=== PATIENT | female | born 1955 | race Caucasian/White ===

== ENCOUNTER 2018-03-17 11:06 | Inpatient (IN) ==
[2018-03-17 12:09] LABS: Basophils % 0.2 %; Hematocrit 32.8 % (35.3-44.9); Hemoglobin 11.9 g/dL (11.5-15.4); Immature Granulocytes % 0.4 % (0-4); Lymphocytes # 0.9 K/mcL (0.6-4.6); Lymphocytes % 7.2 %; Mean Corpuscular HGB Conc 36.3 g/dL (31.6-35.5); Mean Corpuscular Hemoglobin 30.4 pg (28.0-33.3); Mean Corpuscular Volume 83.9 fL (83.0-100.0); Mean Platelet Volume 8.9 fL (9.4-12.4); Monocytes # 1.4 K/mcL (0.0-1.3); Monocytes % 11.3 %; Platelet Count 284 K/mcL (140-400); Red Blood Count 3.91 M/mcL (3.82-4.97); Red Cell Distribution Width 12.3 % (11.5-14.5); Segmented Neutrophils % 80.9 %
[2018-03-17 12:14] LABS: Prothrombin Time 10.8 Seconds (9.4-12.1)
[2018-03-17 12:17] LABS: Activated Partial Thrombo Time 28.2 Seconds (26.0-36.0)
[2018-03-17 12:27] LABS: Troponin I < 0.03 ng/mL (< 0.04)
--- NOTE | 2018-03-17 12:31 | Emergency Department Note ---
Disposition Clinical Impression: Hyponatremia Chest pain Qualifiers: Chest pain type: unspecified Qualified Code(s): R07.9 - Chest pain, unspecified Pneumonia Qualifiers: Pneumonia type: due to unspecified organism Laterality: left Lung location: unspecified part of lung Qualified Code(s): J18.9 - Pneumonia, unspecified organism Disposition: Admitted As Inpatient Condition: Good Referrals: Livier Fox MD [Primary Care Provider] - Forms: ED Satisfaction Letter Time of Disposition: 12:50 Chest Pain HPI - General Chief Complaint: ED Chest Pain Stated Complaint: CP Time Seen by Provider: 03/17/18 11:25 Source: patient, EMS Vital Signs Reviewed: Yes Nursing Notes Reviewed: Yes - History of Present Illness HPI Narrative: This is a 62 year-old female with history of ovarian ca (diagnosed "many years ago," s/p hysterectomy) and epilepsy, who presents with sharp substernal chest pain that began suddenly about an hour ago at rest and has improved since onset. The pain was non-radiating. She denies any associated fever, cough, dyspnea, leg pain, or swelling. She reports a mild headache and chronic diarrhea. 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 Duration: other (improved since onset) Onset: during rest Pain Location: substernal Severity: moderate Severity scale (1-10): 5 Quality: sharp Pain Radiation: none Improves with: nothing Worsens with: nothing Associated symptoms: Denies: nausea, vomiting, dyspnea, syncope, palpitations, fever, cough, leg swelling - Related Data Home Medications Medication Instructions Recorded Confirmed LevETIRAcetam [Keppra Xr] 1,500 mg PO QAM 03/17/18 03/17/18 LevETIRAcetam [Keppra Xr] 2,000 mg PO HS 03/17/18 03/17/18 Allergies Allergy/AdvReac Type Severity Reaction Status Date / Time No Known Allergies Allergy Verified 03/17/18 13:31 All systems ED: reviewed and negative except as stated. Constitutional: Denies: fever Cardiovascular: Reports: as per HPI, chest pain. Denies: palpitations, edema, syncope Respiratory: Denies: cough, dyspnea, wheezes Gastrointestinal: Reports: diarrhea. Denies: abdominal pain, nausea, constipation Neurological: Reports: as per HPI, headache. Denies: weakness, numbness Chest Pain PMH - Past Medical History Medical history: Reports: cancer, renal disease, seizures Psychiatric history: Reports: no psych history - Social History Smoking Status: Never smoker Alcohol use: Reports: none Drug use: Reports: none Physical Exam - General Limitations: no limitations General appearance: alert - Head Head exam: atraumatic, normocephalic - Eye Eye exam: Present: normal appearance, PERRL, EOMI - ENT ENT exam: normal exam, normal oropharynx - Neck Neck exam: Present: normal inspection - Respiratory Respiratory exam: Present: normal lung sounds bilaterally. Absent: wheezes - Cardiovascular Cardiovascular exam: Present: regular rate, normal rhythm, normal heart sounds. Absent: systolic murmur, diastolic murmur, rubs, gallop - Abdominal Exam Abdominal exam: Present: soft, Non-Tender. Absent: tenderness, distention, guarding, rebound, rigidity - Extremities Exam Extremities exam: Present: normal inspection. Absent: calf tenderness - Back Exam Back exam: Present: normal inspection - Neurological Exam Neurological exam: Present: alert, oriented X3, CN II-XII intact. Absent: motor sensory deficit - Psychiatric Psychiatric exam: Present: normal affect, normal mood - Skin Skin exam: Present: warm, dry, intact Course - Reevaluation(s) Reevaluation #1: Patient resting comfortably. Discussed test results and plans for admission. Time: 13:40 - Consultations Consultation #1: Discussed case with Dr. Blake, and patient accepted for admission Time: 14:30 Vital Signs Temperature 99.3 F 03/17/18 11:09 Pulse Rate 94 03/17/18 11:09 Respiratory Rate 22 03/17/18 11:09 Blood Pressure 145/60 03/17/18 11:09 O2 Sat by Pulse Oximetry 100 03/17/18 11:09 Temperature 99.3 F 03/17/18 11:09 Pulse Rate 80 03/17/18 13:30 Respiratory Rate 18 03/17/18 13:30 Blood Pressure 139/66 03/17/18 13:30 O2 Sat by Pulse Oximetry 98 03/17/18 13:30 Oxygen Delivery Oxygen Delivery Room Air Chest Pain - Lab Data Lab results reviewed: Yes I reviewed the patient's lab results. Result diagrams: 03/17/18 12:00 03/17/18 12:00 Lab Results 03/17/18 03/17/18 03/17/18 Range/Units 12:00 12:00 12:00 WBC 12.4 H (4.3-11.1) K/mcL RBC 3.91 (3.82-4.97) M/mcL Hgb 11.9 (11.5-15.4) g/dL Hct 32.8 L (35.3-44.9) % MCV 83.9 (83.0-100.0) fL MCH 30.4 (28.0-33.3) pg MCHC 36.3 H (31.6-35.5) g/dL RDW 12.3 (11.5-14.5) % Plt Count 284 (140-400) K/mcL MPV 8.9 L (9.4-12.4) fL Immature Gran % 0.4 (0-4) % Seg Neutrophils % 80.9 % Lymphocytes % 7.2 % Monocytes % 11.3 % Eosinophils % 0.0 % Basophils % 0.2 % Neutrophils # 10.0 H (1.6-8.9) K/mcL Lymphocytes # 0.9 (0.6-4.6) K/mcL Monocytes # 1.4 H (0.0-1.3) K/mcL Eosinophils # 0.0 (0.0-0.6) K/mcL Basophils # 0.0 (0.0-0.2) K/mcL PT 10.8 (9.4-12.1) Seconds INR 1.0 APTT 28.2 (26.0-36.0) Seconds D-Dimer 442 (0-500) ng/mLFEU Sodium 113 L* (136-145) mEq/L Potassium 4.4 (3.5-5.1) mEq/L Chloride 84 L (98-107) mEq/L Carbon Dioxide 18 L (23-29) mEq/L BUN 2 L (8-23) mg/dL Creatinine 0.74 (0.60-1.20) mg/dL Est GFR ( Amer) > 60 (> 60) Est GFR (Non-Af Amer) > 60 (> 60) BUN/Creatinine Ratio 3 L (6-26) Glucose 102 (70-105) mg/dL Calculated Osmolality 232 L (280-300) Calcium 8.9 (8.6-10.3) mg/dL Troponin I < 0.03 (< 0.04) ng/mL - Radiology Data Radiology results reviewed: Yes I reviewed the patient's radiology results. - EKG Data EKG attestation: Yes I reviewed and interpreted this EKG. EKG shows normal: sinus rhythm Rate: normal Rhythm: NSR [place]/QRS: normal Interpretation: other (poor quality tracing)
[2018-03-17 12:34] LABS: BUN/Creatinine Ratio 3 (6-26); Blood Urea Nitrogen 2 mg/dL (8-23); Calcium 8.9 mg/dL (8.6-10.3); Carbon Dioxide 18 mEq/L (23-29); Chloride 84 mEq/L (98-107); Glucose 102 mg/dL (70-105); Osmolality,Calculated 232 (280-300); Potassium 4.4 mEq/L (3.5-5.1); Sodium 113 mEq/L (136-145); eGFR For African Americans > 60 (> 60); eGFR For Non-African Americans > 60 (> 60)
[2018-03-17] MEDS ORDERED: 0.9 % Sodium Chloride 1,000 ML ONE (13:27)
[2018-03-17] MEDS ORDERED: 0.9 % Sodium Chloride 1,000 ML IVC ONE (13:28)
[2018-03-17] MEDS ORDERED: Azithromycin 500 MG in D5% in Water 250 ML IVPB ONE (14:44)
[2018-03-17] MEDS ORDERED: cefTRIAXone 1,000 MG in Water for inj. (sterile) 20 ML 10 ML IVP ONE (14:44)
[2018-03-17] MEDS ORDERED: Naloxone 0.4 MG/ML INJ IVP PRN ×2 (16:07→16:11)
[2018-03-17] MEDS ORDERED: 0.9 % Sodium Chloride 1,000 ML IVC SCH (16:15)
[2018-03-17] MEDS ORDERED: Levofloxacin 500 MG/100 ML 500 MG/100 ML BAG IVPB SCH (16:18)
--- NOTE | 2018-03-17 16:21 | Internal Med History&Physical ---
Date of Encounter: 03/17/18 Time of Encounter: 16:28 Internal Medicine - H&P: HPI Chief complaint: Chest pain and dizziness (only admits to on review) History of present illness: Ms. Gill is a 62 year old female with a hx of seizure m non-smoker, hx of hysterectomy 15-20 years ago for ovarian Ca who presents with Chest pain evaluation. Found possible PNA and symptomatic hyponatremia suspicious for SIADH. Reported chest pain starting this morning when she was at rest taking seizure medication, sternal , rate 5/10, pressure like, no radiation. Pain symptoms resolved a few hours after admission in the ED. However, on labs, was found to be in severe hyponatremia. Reportedly seen PCP last month with blood work that was reported to be normal. On review, she reports of balance issues in the last few days to suggest symptomatic hyponatremia EKG personally reviewed with rate 88, ST-T changes that is non-specific XR/XR chest 1V portable IMPRESSION: Possible left parahilar pneumonia Past Med Surg Social Fam HX - Past Medical History Medical history: cancer, renal disease, seizures Psychiatric history: no psych history - Past Surgical History Surgical History: other (hysterectomy) - Social History Smoking Status: Never smoker Smokeless Tobacco Status: No Alcohol use: none Drug use: none Internal Medicine - H&P: Meds LevETIRAcetam [Keppra Xr] 1,500 mg PO QAM 03/17/18 [History] LevETIRAcetam [Keppra Xr] 2,000 mg PO HS 03/17/18 [History] 3 Allergy/AdvReac Type Severity Reaction Status Date / Time No Known Allergies Allergy Verified 03/17/18 13:31 All Systems PM: A 10-system review of systems was performed and is negative for pertinent findings except as documented above in the HPI. Review of systems: ROS 14 point review of systems reviewed as best as possible given presentation. Pertinent positive or negative as per HPI or otherwise reviewed as negative - Constitutional Vitals: Temp Pulse Resp BP Pulse Ox 99.3 F 86 21 148/101 97 03/17/18 11:09 03/17/18 15:22 03/17/18 15:22 03/17/18 15:22 03/17/18 15:22 Exam: General - AAO x 3 Psych - Appropriate affect/speech. No agitation Eyes - WILFREDO. Eye lids intact. No scleral icterus Neuro - No gross peripheral or central neuro deficits on inspection Heart - Sinus. RRR. S1 and S2 present. No added HS/murmurs appreciated. No elevated JVD appreciated. Lung - Adequate air entry b/l, No crackles/wheezes appreciated GI - Soft, non-tender. No hepatosplenomegaly/ascites. BS+ - No CVA/suprapubic tenderness or palpable bladder distension Skin - Intact. No rash/petechiae/ecchymosis. Warm extremities MSK - Joints with normal ROM. No joint swellings Internal Med - H&P Results - Labs CBC & Chem 7: 03/17/18 12:00 03/17/18 12:00 - Assessment and plan (1) Hyponatremia Current Visit: Yes Status: Acute Assessment and plan: symptomatic with dizziness. Possible SIADH from PNA - lung process discussed with renal - Dr Shetty - q4 Na check, fluid restrict, trial low vol. 0.9 NS 75cc/hr and monitor closely (would hold if Na worsens), send urine lytes, check TFT, cortisol screen (2) Pneumonia Current Visit: Yes Status: Acute Assessment and plan: treat as CAP send serologies IV levaquin Qualifiers: Pneumonia type: due to unspecified organism Laterality: left Lung location: unspecified part of lung Qualified Code(s): J18.9 - Pneumonia, unspecified organism (3) Chest pain Current Visit: Yes Status: Acute Assessment and plan: might be 2/2 to PNA - will trend trop, treat with antibiotics Qualifiers: Chest pain type: precordial pain Qualified Code(s): R07.2 - Precordial pain (4) Seizure Current Visit: Yes Status: Acute Assessment and plan: hx of seizure follows with neurologist in [place] (Does not recall name). On high dose keppra - Time Spent With Patient Total time spent is greater than 50% in coordination of care (as documented) at patient's floor/unit and/or counseling patient:
[2018-03-17 17:21] LABS: Sodium 117 mEq/L (136-145); Troponin I < 0.03 ng/mL (< 0.04)
[2018-03-17] MEDS ORDERED: levETIRAcetam 250 MG TABLET PO SCH (21:00)
[2018-03-18 01:35] LABS: BUN/Creatinine Ratio 7 (6-26); Blood Urea Nitrogen 6 mg/dL (8-23); Calcium 8.9 mg/dL (8.6-10.3); Carbon Dioxide 19 mEq/L (23-29); Chloride 95 mEq/L (98-107); Glucose 105 mg/dL (70-105); Magnesium 1.7 mg/dL (1.6-2.6); Osmolality,Calculated 252 (280-300); Potassium 4.1 mEq/L (3.5-5.1); Sodium 122 mEq/L (136-145); eGFR For African Americans > 60 (> 60); eGFR For Non-African Americans > 60 (> 60)
[2018-03-18 01:48] LABS: Basophils % 0.3 %; Eosinophils % 0.1 %; Hematocrit 32.1 % (35.3-44.9); Hemoglobin 11.5 g/dL (11.5-15.4); Immature Granulocytes % 0.4 % (0-4); Lymphocytes # 0.9 K/mcL (0.6-4.6); Lymphocytes % 12.9 %; Mean Corpuscular HGB Conc 35.8 g/dL (31.6-35.5); Mean Corpuscular Hemoglobin 30.1 pg (28.0-33.3); Mean Platelet Volume 9.2 fL (9.4-12.4); Monocytes # 1.1 K/mcL (0.0-1.3); Monocytes % 15.5 %; Neutrophils # 5.1 K/mcL (1.6-8.9); Platelet Count 266 K/mcL (140-400); Red Blood Count 3.82 M/mcL (3.82-4.97); Red Cell Distribution Width 12.3 % (11.5-14.5); Segmented Neutrophils % 70.8 %; Thyroid Stimulating Hormone 1.543 mcIU/mL (0.340-5.600)
[2018-03-18 02:20] LABS: Adenovirus Not Detected (Not Detect); Bordetella Pertussis Not Detected (Not Detect); Chlamydophila pneumoniae Not Detected (Not Detect); Coronavirus 229E Not Detected (Not Detect); Coronavirus HKU1 Not Detected (Not Detect); Coronavirus NL63 Not Detected (Not Detect); Coronavirus OC43 Not Detected (Not Detect); Human Metapneumovirus Not Detected (Not Detect); Human Rhinovirus/Enterovirus Not Detected (Not Detect); Influenza A Subtype 2009 H1 Not Detected (Not Detect); Influenza A Untypeable Not Detected (Not Detect); Influenza B Not Detected (Not Detect); Mycoplasma pneumoniae Not Detected (Not Detect); Parainfluenza Virus 1 Not Detected (Not Detect); Parainfluenza Virus 2 Not Detected (Not Detect); Parainfluenza Virus 3 Not Detected (Not Detect); Parainfluenza Virus 4 Not Detected (Not Detect); Respiratory Syncytial Virus Not Detected (Not Detect)
[2018-03-18] MEDS: D5% in 0.2% NACL 500 ML IVC SCH (08:30)
--- NOTE | 2018-03-18 08:52 | Nephrology Consult Note ---
Date of Encounter: 03/18/18 Time of Encounter: 08:50 Assessment and Plan (1) Hyponatremia Current Visit: Yes Status: Acute The patient presented with a sodium of 113. It is unclear if this is acute or chronic. I believe that the etiology is related to excessive fluid intake. This is based on the history of drinking approximate 6 L of fluid per day as well as the fact that the urine osmolality was appropriately low at 73. Recommendations for treatment include fluid restriction at a level of about 1500 mL per day. We will continue to monitor her sodium while she is here in the hospital. It has been associated with hyponatremia less than 1% of the time. Since she has been on this medication for 10 years and the fact that her sodium was normal back in 2014 I do not believe that this is a likely factor. History of Present Illness - History of Present Illness This is a 62-year-old female the present regimen with complaints of atypical chest pain. She was noted to have a sodium level of 13. She subsequently was admitted to the hospital for further evaluation and management. Patient reports that she has been on a low sodium diet because she has had issues with high sodium in the past. She also reports she drinks approximately 6 L of either iced tea coffee or water or combination thereof per day. She denies any lower extremity swelling. She denies any recent nausea vomiting or diarrhea. She has been on Keppra for over 10 years at the same dose for a history of a seizure disorder. Laboratory studies show that this morning her sodium is up to 132. She initially was started on IV normal saline this is subsequently been discontinued. TSH is normal. BUN/creatinine and potassium are all normal. Urine osmolality was appropriately low at 73. Laboratory studies from October 2015 showed that she had a sodium level of 139. There is no other old lab available. Past Med Surg Social Fam HX - Past Medical History Medical history: cancer, renal disease, seizures Psychiatric history: no psych history - Past Surgical History Surgical History: other (hysterectomy) - Social History Smoking Status: Never smoker Smokeless Tobacco Status: No Alcohol use: none Drug use: none Medications and Allergies LevETIRAcetam [Keppra Xr] 1,500 mg PO QAM 03/17/18 [History] LevETIRAcetam [Keppra Xr] 2,000 mg PO HS 03/17/18 [History] 3 Allergy/AdvReac Type Severity Reaction Status Date / Time No Known Allergies Allergy Verified 03/17/18 13:31 Review of Systems Constitutional: as per HPI Eyes: bilateral: blurred vision (patient denies), diplopia (patient denies) Nose, mouth and throat: no dizziness, no headache(s) Cardiovascular: chest pain, no palpitations Respiratory: no cough, no dyspnea Gastrointestinal: no abdominal pain, no change in bowel habits Musculoskeletal: no muscle weakness, no numbness Integumentary: no hirsutism, no striae Neurological: as per HPI Psychiatric: no depression, no difficulty concentrating Endocrine: as per HPI Hematologic/Lymphatic: no easy bruising, no lymphadenopathy Exam - Vital Signs Vital signs: Initial Vital Signs Temp Pulse Resp BP Pulse Ox 99.3 F 94 22 145/60 100 03/17/18 11:09 03/17/18 11:09 03/17/18 11:09 03/17/18 11:09 03/17/18 11:09 Vital Signs - Last 8 Hours Temp Pulse Resp BP Pulse Ox 03/18/18 06:56 99.8 F H 71 20 109/72 97 03/18/18 02:22 98.6 F 72 18 131/69 98 Intake and Output 03/17/18 03/18/18 03/18/18 23:59 07:59 15:59 Output Total 1800 / 1800 1300 / 1300 Balance -1800 / -1800 -1300 / -1300 Output: Urine 1800 / 1800 1300 / 1300 Other: # Voids 1 Weight 50.2 kg Patient Weight 03/18/18 23:59 Weight 50.2 kg - General Appearance Exam: The patient is alert and oriented. She is in no acute distress. Lungs clear to auscultation. Heart regular rate and rhythm. Abdomen shows normal bowel sounds bruise masses or megaly or tenderness. Extremities show no peripheral edema. Results - Lab Results 03/18/18 00:59 03/18/18 07:44 Most recent lab results Calcium 8.9 mg/dL (8.6-10.3) 03/18/18 00:59 Magnesium 1.7 mg/dL (1.6-2.6) 03/18/18 00:59 Urine Sodium 19.6 mEq/L 03/17/18 22:03 Consult Discharge Plan - Plan Referrals: Livier Fox MD [Primary Care Provider] -
[2018-03-18] MEDS ORDERED: levETIRAcetam 250 MG TABLET PO SCH (09:00)
[2018-03-18] MEDS: Levofloxacin 750 MG/150 ML 750 MG/150 ML BAG IVPB SCH (09:09)
[2018-03-18] MEDS: KEPPRA 500 MG PO SCH ×2 (10:04→21:07)
--- NOTE | 2018-03-18 12:28 | Electrocardiograph Report ---
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
--- NOTE | 2018-03-18 17:40 | Internal Med Progress Note ---
Date of Encounter: 03/18/18 Time of Encounter: 17:36 - Assessment and plan (1) Hyponatremia Current Visit: Yes Status: Acute Assessment and plan: Severe hyponatremia Due to excessive water intake cont fluid restriction her Na got corrected rapidly so started her on D5 1/ NS @ 75ml /hr Our goal to keep Na @ 126-128 today Goal of correction 0.5 meq/hr, not more than 8-10 meq/day Nephro consulted cont Q4hr BMP (2) Chest pain Current Visit: Yes Status: Acute Assessment and plan: might be 2/2 to PNA Atypical CP so far negative trop No acute EKG changes no further work up needed Cont empirical abx Qualifiers: Chest pain type: precordial pain Qualified Code(s): R07.2 - Precordial pain (3) Pneumonia Current Visit: Yes Status: Acute Assessment and plan: Mostly bacterial Her resp viral panel - negative cont empirical abx Levaquin Qualifiers: Pneumonia type: due to unspecified organism Laterality: left Lung location: unspecified part of lung Qualified Code(s): J18.9 - Pneumonia, unspecified organism (4) Seizure Current Visit: Yes Status: Acute Assessment and plan: hx of seizure follows with neurologist in [place] (Does not recall name) Resumed home dose of Keppra Also since pt has more seizure activity lately will do EEG in AM - Time Spent With Patient Total time spent is greater than 50% in coordination of care (as documented) at patient's floor/unit and/or counseling patient: - Subjective Interval history: Ms. Gill is a 62 year old female with a hx of seizure , non-smoker, hx of hysterectomy 15-20 years ago for ovarian Ca who presents with Chest pain evaluation. Her CXR showed left parahilar pneumonia. Also her Na was @ 113. She was admitted in the hospital and started on gentle hydration. However her Na got corrected rapidly. This morning her Na @ 135. She did mention drinking plenty of plain water at home. She denied any CP now..She did c/o frequent seizures lately. - Constitutional Vitals: Temp Pulse Resp BP Pulse Ox 98.6 F 91 98 101/65 100 03/18/18 15:59 03/18/18 15:59 03/18/18 15:59 03/18/18 15:59 03/18/18 10:58 General appearance: Present: A&O X 3, no acute distress, answers questions appropriately - Head Head exam: Present: atraumatic, normal inspection - Neck Neck exam general surgery: Present: supple - Respiratory Respiratory exam: Present: decreased breath sounds. Absent: respiratory distress, rhonchi, wheezes - Cardiovascular Cardiovascular exam: Present: RRR, +S1, +S2. Absent: tachycardia - GI/Abdominal GI/Abdominal exam: Present: normal bowel sounds, soft. Absent: rebound, rigid, tenderness - Extremities Exam Extremities exam: Absent: calf tenderness, pedal edema, tenderness - Back Exam Back exam: Absent: CVA tenderness (L), CVA tenderness (R) - Neurological Exam Neurological exam: Present: alert, oriented X3 - Psychiatric Psychiatric exam: Present: normal affect, normal mood Internal Medicine: Result - Labs CBC & Chem 7: 03/18/18 00:59 03/18/18 16:04 Labs: Short CBC 03/18/18 Range/Units 00:59 WBC 7.3 (4.3-11.1) K/mcL Hgb 11.5 (11.5-15.4) g/dL Hct 32.1 L (35.3-44.9) % Plt Count 266 (140-400) K/mcL Neutrophils # 5.1 (1.6-8.9) K/mcL BMP 03/17/18 03/18/18 03/18/18 20:37 00:59 00:59 Sodium 120 L* 122 L 122 L Potassium 4.1 Chloride 95 L Carbon Dioxide 19 L BUN 6 L Creatinine 0.84 Glucose 105 Calcium 8.9 03/18/18 03/18/18 03/18/18 05:04 07:44 12:16 Sodium 132 L D 135 L 129 L Potassium Chloride Carbon Dioxide BUN Creatinine Glucose Calcium 03/18/18 16:04 Sodium 131 L Potassium Chloride Carbon Dioxide BUN Creatinine Glucose Calcium Cardiac Enzymes 03/17/18 03/18/18 Range/Units 22:11 05:04 Troponin I < 0.03 < 0.03 (< 0.04) ng/mL - ABG Interpretation ABG results: PT/INR, D-dimer PT 10.8 Seconds (9.4-12.1) 03/17/18 12:00 D-Dimer 442 ng/mLFEU (0-500) 03/17/18 12:00 Consult Discharge Plan - Plan Referrals: Livier Fox MD [Primary Care Provider] -
[2018-03-18] MEDS ORDERED: D5% in 0.2% NACL 500 ML IVC SCH (18:30)
[2018-03-19 05:15] LABS: Hematocrit 34.5 % (35.3-44.9); Hemoglobin 11.6 g/dL (11.5-15.4); Mean Corpuscular HGB Conc 33.6 g/dL (31.6-35.5); Mean Corpuscular Hemoglobin 29.7 pg (28.0-33.3); Mean Corpuscular Volume 88.5 fL (83.0-100.0); Mean Platelet Volume 8.9 fL (9.4-12.4); Platelet Count 260 K/mcL (140-400); Red Cell Distribution Width 12.8 % (11.5-14.5)
[2018-03-19 05:38] LABS: Alanine Aminotransferase 7 Units/L (7-52); Albumin 3.2 g/dL (3.5-5.7); Alkaline Phosphatase 88 Units/L (34-104); Aspartate Amino Transferase 13 Units/L (13-39); BUN/Creatinine Ratio 10 (6-26); Bilirubin,Total 0.4 mg/dL (0.3-1.0); Blood Urea Nitrogen 8 mg/dL (8-23); Calcium 8.9 mg/dL (8.6-10.3); Carbon Dioxide 22 mEq/L (23-29); Chloride 104 mEq/L (98-107); Globulin 3.2 g/dL (2.4-3.5); Glucose 93 mg/dL (70-105); Osmolality,Calculated 272 (280-300); Potassium 3.6 mEq/L (3.5-5.1); Sodium 132 mEq/L (136-145); Total Protein 6.4 g/dL (6.4-8.9); eGFR For African Americans > 60 (> 60); eGFR For Non-African Americans > 60 (> 60)
[2018-03-19 05:57] LABS: Eosinophils # 0.1 K/mcL (0.0-0.6); Lymphocytes # 1.5 K/mcL (0.6-4.6); Monocytes # 0.4 K/mcL (0.0-1.3); Neutrophils # 2.4 K/mcL (1.6-8.9); Platelet Estimate Normal (Normal)
[2018-03-19] MEDS: KEPPRA 500 MG PO SCH ×3 (06:37→20:29)
[2018-03-19] MEDS: Levofloxacin 750 MG/150 ML 750 MG/150 ML BAG IVPB SCH (08:23)
--- NOTE | 2018-03-19 12:00 | Nephrology Progress Note ---
Date of Encounter: 03/19/18 Time of Encounter: 11:45 - Assessment and Plan (1) Hyponatremia Current Visit: Yes Status: Acute Sodium improving, 132. Most likely related to excessive fluid intake. Continue fluid restriction. Will continue to monitor. Subjective Interval history: Currently having EEG set up. No new complaints. Objective - Vital Signs Vital signs: Vital Signs Temp Pulse Resp BP Pulse Ox 03/19/18 11:18 98.1 F 75 16 119/74 99 03/19/18 07:30 98.1 F 72 16 132/83 100 03/19/18 03:49 98.0 F 76 16 132/70 100 03/19/18 00:28 98.2 F 82 16 138/76 100 03/18/18 21:30 97.9 F 81 17 146/80 100 03/18/18 15:59 98.6 F 91 98 101/65 Intake and Output 03/18/18 03/19/18 03/19/18 23:59 07:59 15:59 Intake Total 360 / 360 Output Total 850 / 850 Balance -850 / -850 360 / 360 Intake: Oral 360 / 360 Output: Urine 850 / 850 Other: Meal Breakfast Percent of Meal Consumed 50% # Voids 1 Weight 50.3 kg 50.3 kg Patient Weight 03/19/18 23:59 Weight 50.3 kg - General Appearance General appearance: Present: well-developed, well-nourished, appears started age EENT: Present: mucous membranes moist Neck: Present: no JVD Respiratory: Present: clear Cardiology: Present: no edema, regular rate, regular rhythm Gastrointestinal: Present: normoactive bowel sounds, no tenderness Integumentary: Present: warm and dry Neurologic: Present: alert and oriented x3 Psychiatric: Present: mood/affect appropriate, cooperative - Lab 03/19/18 05:01 03/19/18 05:01 Most recent lab results Calcium 8.9 mg/dL (8.6-10.3) 03/19/18 05:01 Magnesium 2.0 mg/dL (1.6-2.6) 03/19/18 05:01 Urine Sodium 19.6 mEq/L 03/17/18 22:03 Consult Discharge Plan - Plan Referrals: Livier Fox MD [Primary Care Provider] -
--- NOTE | 2018-03-19 14:42 | EEG/EMG/Oth Biometrics Report ---
EEG Procedure Report Date of procedure: 03/19/18 EEG Procedure: Routine EEG Procedure Note: This is a report of a 21 channel bipolar and referential montage EEG. A posterior dominant rhythm consisted of mixed beta and alpha frequencies. This rhythm attenuates symmetrically with eye opening. Hyperventilation is performed and does not significantly alter the recording. Periods of drowsiness and stage II sleep are identified as reference by dropout of the posterior dominant rhythm and emergence of vertex activity, K complexes, and sleep spindles. Photostimulation is performed and does not produce a driving response. The EKG rhythm strip reveals normal sinus rhythm at 72 beats per minute. Impressions: This EEG recording is within normal limits. There is no evidence of epileptiform activity identified during the study. Comment: A normal EEG does not preclude a diagnosis of seizure or epilepsy. If the clinical suspicion for seizure activity is high, serial EEGs or perhaps a prolonged recording may increase the yield. Please correlate clinically.
[2018-03-19] MEDS: D5% in 0.2% NACL 500 ML IVC SCH (15:19)
--- NOTE | 2018-03-19 15:41 | Internal Med Progress Note ---
Date of Encounter: 03/19/18 Time of Encounter: 15:39 - Assessment and plan (1) Hyponatremia Current Visit: Yes Status: Acute Assessment and plan: Severe hyponatremia Due to excessive water intake cont fluid restriction her Na got corrected rapidly y/d so started her on D5 1/4 NS @ 75ml /hr ..this morning Na @ 132 so d/c IV fluids Goal of correction 0.5 meq/hr, not more than 8-10 meq/day Nephro is on board.. appreciate their help check labs in AM possible d/c home in AM (2) Chest pain Current Visit: Yes Status: Acute Assessment and plan: might be 2/2 to PNA Atypical CP so far negative trop No acute EKG changes no further work up needed Cont empirical abx Qualifiers: Chest pain type: precordial pain Qualified Code(s): R07.2 - Precordial pain (3) Pneumonia Current Visit: Yes Status: Acute Assessment and plan: Mostly bacterial Her resp viral panel - negative cont empirical abx Levaquin Qualifiers: Pneumonia type: due to unspecified organism Laterality: left Lung location: unspecified part of lung Qualified Code(s): J18.9 - Pneumonia, unspecified organism (4) Seizure Current Visit: Yes Status: Acute Assessment and plan: hx of seizure follows with neurologist in [place] (Does not recall name) Resumed home dose of Keppra Since pt mentioned about frequent seizure activity lately did an EEG which showed normal activity - Time Spent With Patient Total time spent is greater than 50% in coordination of care (as documented) at patient's floor/unit and/or counseling patient: - Subjective Interval history: Ms. Gill is a 62 year old female with a hx of seizure , non-smoker, hx of hysterectomy 15-20 years ago for ovarian Ca who presents with Chest pain evaluation. Her CXR showed left parahilar pneumonia. Also her Na was @ 113. She was admitted in the hospital and started on gentle hydration. She did mention drinking plenty of plain water at home.She did c/o frequent seizures lately. She denied any CP now. She is alert, awake and O x 3. Denied any SOB . No events over night. No seizure activity - Constitutional Vitals: Temp Pulse Resp BP Pulse Ox 98.1 F 75 16 119/74 99 03/19/18 11:18 03/19/18 11:18 03/19/18 11:18 03/19/18 11:18 03/19/18 11:18 General appearance: Present: A&O X 3, no acute distress, answers questions appropriately - Head Head exam: Present: atraumatic, normal inspection - Neck Neck exam general surgery: Present: supple - Respiratory Respiratory exam: Present: decreased breath sounds. Absent: rales, respiratory distress, rhonchi, wheezes - Cardiovascular Cardiovascular exam: Present: RRR, +S1, +S2. Absent: tachycardia - GI/Abdominal GI/Abdominal exam: Present: normal bowel sounds, soft. Absent: rebound, rigid, tenderness - Extremities Exam Extremities exam: Absent: calf tenderness, pedal edema, tenderness - Back Exam Back exam: Absent: CVA tenderness (L), CVA tenderness (R) - Neurological Exam Neurological exam: Present: alert, oriented X3 - Psychiatric Psychiatric exam: Present: normal affect, normal mood - Skin Skin exam: Absent: rash Internal Medicine: Result - Labs CBC & Chem 7: 03/19/18 05:01 03/19/18 05:01 Labs: Short CBC 03/19/18 Range/Units 05:01 WBC 4.4 (4.3-11.1) K/mcL Hgb 11.6 (11.5-15.4) g/dL Hct 34.5 L (35.3-44.9) % Plt Count 260 (140-400) K/mcL Neutrophils # 2.4 (1.6-8.9) K/mcL BMP 03/18/18 03/18/18 03/19/18 16:04 20:13 00:44 Sodium 131 L 131 L 130 L Potassium Chloride Carbon Dioxide BUN Creatinine Glucose Calcium 03/19/18 03/19/18 05:01 05:01 Sodium 132 L 132 L Potassium 3.6 Chloride 104 Carbon Dioxide 22 L BUN 8 Creatinine 0.81 Glucose 93 Calcium 8.9 Liver Function 03/19/18 Range/Units 05:01 Total Bilirubin 0.4 (0.3-1.0) mg/dL AST 13 (13-39) Units/L ALT 7 (7-52) Units/L Alkaline Phosphatase 88 (34-104) Units/L Albumin 3.2 L (3.5-5.7) g/dL - ABG Interpretation ABG results: PT/INR, D-dimer PT 10.8 Seconds (9.4-12.1) 03/17/18 12:00 D-Dimer 442 ng/mLFEU (0-500) 03/17/18 12:00 Consult Discharge Plan - Plan Referrals: Livier Fox MD [Primary Care Provider] - 03/24/18 10:30 am (Please follow up as schedule...)
[2018-03-20 06:54] LABS: Mycoplasma pneumoniae IgG 0.03 U/L (<=0.09)
[2018-03-20] MEDS: KEPPRA 500 MG PO SCH (08:28)
[2018-03-20] MEDS ORDERED: levoFLOXacin 750 MG TABLET PO SCH (09:00)
[2018-03-20 10:17] LABS: BUN/Creatinine Ratio 13 (6-26); Blood Urea Nitrogen 10 mg/dL (8-23); Carbon Dioxide 26 mEq/L (23-29); Chloride 99 mEq/L (98-107); Glucose 93 mg/dL (70-105); Osmolality,Calculated 271 (280-300); Potassium 3.8 mEq/L (3.5-5.1); Sodium 131 mEq/L (136-145); eGFR For African Americans > 60 (> 60); eGFR For Non-African Americans > 60 (> 60)
--- NOTE | 2018-03-20 10:18 | Nephrology Progress Note ---
Date of Encounter: 03/20/18 Time of Encounter: 09:50 - Assessment and Plan (1) Hyponatremia Current Visit: Yes Status: Acute Sodium stable, 131. Most likely related to excessive fluid intake. Continue fluid restriction. Will continue to monitor. Subjective Interval history: Laying quietly in bed. States feeling better. No new complaints. Objective - Vital Signs Vital signs: Vital Signs Temp Pulse Resp BP Pulse Ox 03/20/18 07:07 98.2 F 79 16 122/74 99 03/19/18 18:58 98.5 F 89 17 113/75 100 03/19/18 16:04 98.4 F 82 17 116/79 99 03/19/18 11:18 98.1 F 75 16 119/74 99 Intake and Output 03/19/18 03/20/18 03/20/18 23:59 07:59 15:59 Intake Total 240 / 240 30 / 30 Output Total 500 / 500 500 / 500 Balance -260 / -260 -470 / -470 Intake: Oral 240 / 240 30 / 30 Output: Urine 500 / 500 500 / 500 Other: Meal Lunch Percent of Meal Consumed 100% # Voids 1 Weight 47.259 kg Patient Weight 03/20/18 23:59 Weight 47.259 kg - General Appearance General appearance: Present: well-developed, well-nourished, appears started age EENT: Present: mucous membranes moist Neck: Present: no JVD Respiratory: Present: clear Cardiology: Present: no edema, regular rate, regular rhythm Gastrointestinal: Present: normoactive bowel sounds, no tenderness Integumentary: Present: warm and dry Neurologic: Present: alert and oriented x3 - Lab 03/19/18 05:01 03/19/18 05:01 Most recent lab results Calcium 8.9 mg/dL (8.6-10.3) 03/19/18 05:01 Magnesium 2.0 mg/dL (1.6-2.6) 03/19/18 05:01 Urine Sodium 19.6 mEq/L 03/17/18 22:03 Consult Discharge Plan - Plan Referrals: Livier Fox MD [Primary Care Provider] - 03/24/18 10:30 am (Please follow up as schedule...)
--- NOTE | 2018-03-20 11:17 | Discharge Summary ---
- NOTES TO OUTPATIENT PROVIDER Notes to Outpatient Provider: f/u with PCP in one week. Strict fluidc recstriction. Plecase drink only 2 lit / day Date of Encounter: 03/20/18 Time of Encounter: 11:12 - Discharge Diagnosis (1) Hyponatremia Priority: Primary Status: Acute (2) Chest pain Priority: Secondary Status: Acute Qualifiers: Chest pain type: precordial pain Qualified Code(s): R07.2 - Precordial pain (3) Pneumonia Priority: Primary Status: Acute Qualifiers: Pneumonia type: due to unspecified organism Laterality: left Lung location: unspecified part of lung Qualified Code(s): J18.9 - Pneumonia, unspecified organism (4) Seizure Priority: Secondary Status: Acute Hospital course: Ms. Gill is a 62 year old female with a hx of seizure , non-smoker, hx of hysterectomy 15-20 years ago for ovarian Ca who presents with Chest pain evaluation. Her CXR showed left parahilar pneumonia. Also her Na was @ 113. She was admitted in the hospital and started on gentle hydration and placed her on fluid restriction since she did mention drinking plenty of plain water at home. Her Na got corrected slowly. This morning her Na @ 131. She does have pneumonia so started her on empirical abx Levaquin. She She did c/o frequent seizures lately. Ordered EEG here which did not show any acute seizure activity.So recommend to continue her home dose of Keppra. - Time Spent with Patient Total time spent providing and/or coordinating discharge services: - Discharge Medications Prescriptions: levoFLOXacin [Levaquin] 750 mg PO DAILY #2 tablet Home Medications: LevETIRAcetam [Keppra Xr] 1,500 mg PO QAM 03/17/18 [History] LevETIRAcetam [Keppra Xr] 2,000 mg PO HS 03/17/18 [History] levoFLOXacin [Levaquin] 750 mg PO DAILY #2 tablet 03/20/18 [Rx] Allergies/Adverse Reactions: 3 Allergy/AdvReac Type Severity Reaction Status Date / Time No Known Allergies Allergy Verified 03/17/18 13:31 Date of admission: 03/17/18 15:05 Primary care physician: Livier Fox, Consults: 03/17/18 16:14 Consult to Nephrology [CONS] Routine Consulting Provider: [facility] Reason for Consult: hyponatremia Call Completed: Yes 03/19/18 13:10 Consult to Interpret Exam [CONS] Routine Consulting Provider: Jero Salguero Consult to Interpret Exam: Interpret EEG - Constitutional Vitals: Temp Pulse Resp BP Pulse Ox 98.2 F 79 16 122/74 99 03/20/18 07:07 03/20/18 07:07 03/20/18 07:07 03/20/18 07:07 03/20/18 07:07 General appearance: Present: A&O X 3, no acute distress, answers questions appropriately - Head Head exam: Present: atraumatic, normal inspection - Neck Neck exam general surgery: Present: supple - Respiratory Respiratory exam: Present: decreased breath sounds. Absent: respiratory distress, rhonchi, wheezes - Cardiovascular Cardiovascular exam: Present: RRR, +S1, +S2. Absent: tachycardia - GI/Abdominal GI/Abdominal exam: Present: normal bowel sounds, soft. Absent: rebound, rigid, tenderness - Extremities Exam Extremities exam: Absent: calf tenderness, pedal edema, tenderness - Back Exam Back exam: Absent: CVA tenderness (L), CVA tenderness (R) - Neurological Exam Neurological exam: Present: alert, oriented X3 - Psychiatric Psychiatric exam: Present: normal affect, normal mood - Patient Status Disposition: Home, Self-Care Condition: Good - Discharge Instructions Instructions: Levofloxacin (By mouth), Chest Pain (DC), Pneumonia (DC) Follow Up With: Livier Fox MD [Primary Care Provider] - 03/24/18 10:30 am (Please follow up as schedule...)
[2018-03-20 12:29] VITALS: BP 121/76
== END 2018-03-20 14:26 | disposition home or self-care (01) | DRG 194 ==
LOC: EMEROO 11:06 → 2ANU 15:05
PROVIDERS: ADMIT General Practice; ATTEND General Practice

== ENCOUNTER 2020-05-01 02:28 | Inpatient (IN) ==
[2020-05-01 03:05] LABS: Basophils # 0.1 K/mcL (0.0-0.2); Basophils % 1.3 %; Hematocrit 39.4 % (35.3-44.9); Hemoglobin 12.5 g/dL (11.5-15.4); Immature Granulocytes % 0.3 % (0-4); Lymphocytes # 1.2 K/mcL (0.6-4.6); Lymphocytes % 32.1 %; Mean Corpuscular HGB Conc 31.7 g/dL (31.6-35.5); Mean Corpuscular Hemoglobin 28.7 pg (28.0-33.3); Mean Corpuscular Volume 90.6 fL (83.0-100.0); Mean Platelet Volume 9.4 fL (9.4-12.4); Monocytes # 0.7 K/mcL (0.0-1.3); Monocytes % 17.5 %; Neutrophils # 1.8 K/mcL (1.6-8.9); Platelet Count 229 K/mcL (140-400); Red Blood Count 4.35 M/mcL (3.82-4.97); Red Cell Distribution Width 12.5 % (11.5-14.5); Segmented Neutrophils % 47.8 %; White Blood Count 3.8 K/mcL (4.3-11.1)
[2020-05-01] MEDS ORDERED: Isovue-370 500 ML BOTTLE IVP ONE (03:19)
[2020-05-01 03:41] LABS: Bilirubin,Urine Negative (Negative); Blood,Urine Negative (Negative); Clarity,Urine Clear (Clear); Color,Urine Colorless (Yellow); Glucose,Urine (UA) Normal (Normal); Ketones,Urine Negative (Negative); Leukocyte Esterase,Urine Negative (Negative); Nitrite,Urine Negative (Negative); PH,Urine 6.5 pH Units (5.0-8.0); Protein,Urine Negative (Neg-Trace); Specific Gravity,Urine 1.005 (1.010-1.025); Urobilinogen,Urine Normal (Normal)
[2020-05-01] MEDS ORDERED: *HR* HYDROcodone/Acet 5/325 mg TABLET PO ONE (03:47)
[2020-05-01] MEDS ORDERED: lisinopriL 20 MG TABLET PO ONE (03:48)
[2020-05-01 04:41] LABS: Alanine Aminotransferase 4 Units/L (7-52); Albumin 3.6 g/dL (3.5-5.7); Albumin/Globulin Ratio 1.1 (1.1-2.2); Alkaline Phosphatase 254 Units/L (34-104); Aspartate Amino Transferase 11 Units/L (13-39); BUN/Creatinine Ratio 11 (6-26); Bilirubin,Direct 0.1 mg/dL (0.0-0.2); Bilirubin,Indirect 0.5 mg/dL (0.0-1.0); Bilirubin,Total 0.6 mg/dL (0.3-1.0); Blood Urea Nitrogen 9 mg/dL (8-23); Calcium 9.2 mg/dL (8.6-10.3); Carbon Dioxide 26 mEq/L (23-29); Chloride 97 mEq/L (98-107); Globulin 3.4 g/dL (2.4-3.5); Glucose 88 mg/dL (70-105); Lipase 46 Units/L (11-82); Magnesium 1.9 mg/dL (1.6-2.6); Osmolality,Calculated 264 (280-300); Potassium 3.9 mEq/L (3.5-5.1); Sodium 128 mEq/L (136-145); Troponin I < 0.03 ng/mL (< 0.04); eGFR For African Americans > 60 (> 60); eGFR For Non-African Americans > 60 (> 60)
[2020-05-01] MEDS ORDERED: *HR* FentaNYL (PF) 100 MCG/2 ML VIAL IVP ONE (05:19)
[2020-05-01] MEDS ORDERED: *HR* HYDROmorphone (PF) 1 MG/ML SYRINGE IVP ONE (06:14)
[2020-05-01] MEDS ORDERED: *HR* HYDROcodone/Acet 5/325 mg TABLET PO PRN (07:13)
[2020-05-01] MEDS ORDERED: Naloxone 0.4 MG/ML INJ IVP PRN (07:13)
[2020-05-01] MEDS ORDERED: *HR* OxyCODONE Immed Rel 5 MG TABLET PO PRN ×2 (07:13→10:23)
[2020-05-01] MEDS ORDERED: Ondansetron 4 MG/2 ML VIAL IVP PRN (07:13)
[2020-05-01] MEDS ORDERED: LEVETIRACETAM 1500 MG PO SCH (07:45)
[2020-05-01] MEDS: Acetaminophen 325 MG TABLET PO PRN (11:40)
[2020-05-01] MEDS ORDERED: cloNIDine HCL 0.1 MG TABLET PO ONE (12:21)
[2020-05-01] MEDS: *HR* Heparin 5,000 UNIT/ML VIAL SQ SCH (18:15)
[2020-05-01] MEDS: *HR* OxyCODONE ER (12 HR) 10 MG TABLET PO SCH (18:15)
[2020-05-01] MEDS: LEVETIRACETAM 500 MG PO SCH (21:08)
[2020-05-01] MEDS: *HR* OxyCODONE Immed Rel 5 MG TABLET PO PRN (22:06)
[2020-05-02] MEDS: Acetaminophen 325 MG TABLET PO PRN ×2 (00:57→14:13)
[2020-05-02 02:57] LABS: Basophils % 0.8 %; Eosinophils % 0.2 %; Hematocrit 37.2 % (35.3-44.9); Hemoglobin 12.1 g/dL (11.5-15.4); Immature Granulocytes % 0.4 % (0-4); Mean Corpuscular HGB Conc 32.5 g/dL (31.6-35.5); Mean Corpuscular Hemoglobin 29.2 pg (28.0-33.3); Mean Corpuscular Volume 89.6 fL (83.0-100.0); Mean Platelet Volume 9.4 fL (9.4-12.4); Monocytes # 0.7 K/mcL (0.0-1.3); Monocytes % 14.2 %; Neutrophils # 3.3 K/mcL (1.6-8.9); Platelet Count 243 K/mcL (140-400); Red Blood Count 4.15 M/mcL (3.82-4.97); Red Cell Distribution Width 12.6 % (11.5-14.5); Segmented Neutrophils % 64.4 %; White Blood Count 5.2 K/mcL (4.3-11.1)
[2020-05-02 03:26] LABS: BUN/Creatinine Ratio 16 (6-26); Blood Urea Nitrogen 15 mg/dL (8-23); Calcium 9.1 mg/dL (8.6-10.3); Carbon Dioxide 24 mEq/L (23-29); Chloride 91 mEq/L (98-107); Glucose 94 mg/dL (70-105); Osmolality,Calculated 257 (280-300); Sodium 123 mEq/L (136-145); eGFR For African Americans > 60 (> 60); eGFR For Non-African Americans > 60 (> 60)
[2020-05-02] MEDS: *HR* Heparin 5,000 UNIT/ML VIAL SQ SCH ×2 (05:40→17:01)
[2020-05-02] MEDS: *HR* OxyCODONE ER (12 HR) 10 MG TABLET PO SCH ×2 (05:53→17:01)
[2020-05-02] MEDS: LEVETIRACETAM 500 MG PO SCH ×2 (09:07→23:21)
[2020-05-02] MEDS: *HR* OxyCODONE Immed Rel 5 MG TABLET PO PRN ×2 (10:10→16:44)
[2020-05-02] MEDS ORDERED: Isovue-370 500 ML BOTTLE IVP ONE ×2 (11:12→11:15)
[2020-05-02] MEDS ORDERED: Sucralfate 1 GM TABLET PO SCH (11:30)
[2020-05-02] MEDS: Ampicillin/Sulbactam 3,000 MG in 0.9 % Sodium Chloride Mini Bag 100 ML IVPB SCH ×2 (15:56→21:19)
[2020-05-02] MEDS ORDERED: Pantoprazole 40 MG VIAL IVP ONE (16:00)
[2020-05-02] MEDS ORDERED: *HR* HYDROmorphone 2 MG/ML SYRINGE IVP ONE (16:12)
[2020-05-02 16:15] LABS: ABG Base Excess -2 mEq/L (-2 to 3); ABG HCO3 22 mEq/L (21-27); ABG Oxygen Saturation 96 % (95-98); ABG PCO2 32 mmHg (35-45); ABG PH 7.43 pH Units (7.32-7.45); ABG PO2 77 mmHg (85-104); ABG TCO2 23 mEq/L (20-26)
[2020-05-02] MEDS ORDERED: *HR* LORazepam 2 MG/ML VIAL IVP ONE (18:37)
[2020-05-03] MEDS: Ampicillin/Sulbactam 3,000 MG in 0.9 % Sodium Chloride Mini Bag 100 ML IVPB SCH ×4 (03:22→23:30)
[2020-05-03] MEDS: Nitroglycerin 0.4 MG TAB.SUBL SL PRN ×2 (04:34→05:07)
[2020-05-03] MEDS ORDERED: Morphine Sulfate 2 MG/ML SYRINGE IVP ONE (05:17)
[2020-05-03 06:41] LABS: Basophils % 0.3 %; Eosinophils % 0.1 %; Hematocrit 35.1 % (35.3-44.9); Hemoglobin 11.7 g/dL (11.5-15.4); Immature Granulocytes % 0.3 % (0-4); Lymphocytes # 0.4 K/mcL (0.6-4.6); Lymphocytes % 5.2 %; Mean Corpuscular HGB Conc 33.3 g/dL (31.6-35.5); Mean Corpuscular Hemoglobin 29.4 pg (28.0-33.3); Mean Corpuscular Volume 88.2 fL (83.0-100.0); Mean Platelet Volume 9.5 fL (9.4-12.4); Monocytes # 0.6 K/mcL (0.0-1.3); Monocytes % 7.3 %; Neutrophils # 6.6 K/mcL (1.6-8.9); Platelet Count 204 K/mcL (140-400); Red Blood Count 3.98 M/mcL (3.82-4.97); Red Cell Distribution Width 12.4 % (11.5-14.5); Segmented Neutrophils % 86.8 %; White Blood Count 7.6 K/mcL (4.3-11.1)
[2020-05-03 07:01] LABS: BUN/Creatinine Ratio 10 (6-26); Blood Urea Nitrogen 8 mg/dL (8-23); Carbon Dioxide 23 mEq/L (23-29); Chloride 93 mEq/L (98-107); Glucose 90 mg/dL (70-105); Osmolality,Calculated 256 (280-300); Sodium 124 mEq/L (136-145); eGFR For African Americans > 60 (> 60); eGFR For Non-African Americans > 60 (> 60)
[2020-05-03] MEDS: *HR* OxyCODONE ER (12 HR) 10 MG TABLET PO SCH ×3 (07:01→18:14)
[2020-05-03] MEDS: *HR* Heparin 5,000 UNIT/ML VIAL SQ SCH ×2 (07:04→18:14)
[2020-05-03] MEDS: LEVETIRACETAM 500 MG PO SCH ×2 (08:09→23:23)
[2020-05-04] MEDS: *HR* OxyCODONE ER (12 HR) 10 MG TABLET PO SCH (05:39)
[2020-05-04] MEDS: *HR* Heparin 5,000 UNIT/ML VIAL SQ SCH (05:39)
[2020-05-04] MEDS ORDERED: levETIRAcetam 500 MG/5 ML UDC PO SCH ×2 (09:00→18:00)
[2020-05-04] MEDS: *HR* OxyCODONE Immed Rel 5 MG TABLET PO PRN (09:10)
[2020-05-04 10:34] LABS: Basophils % 0.4 %; Eosinophils # 0.1 K/mcL (0.0-0.6); Eosinophils % 0.7 %; Hematocrit 33.9 % (35.3-44.9); Hemoglobin 11.3 g/dL (11.5-15.4); Immature Granulocytes % 0.2 % (0-4); Lymphocytes # 0.6 K/mcL (0.6-4.6); Lymphocytes % 6.6 %; Mean Corpuscular HGB Conc 33.3 g/dL (31.6-35.5); Mean Corpuscular Hemoglobin 30.1 pg (28.0-33.3); Mean Corpuscular Volume 90.4 fL (83.0-100.0); Mean Platelet Volume 9.6 fL (9.4-12.4); Monocytes # 1.2 K/mcL (0.0-1.3); Monocytes % 13.2 %; Neutrophils # 7.1 K/mcL (1.6-8.9); Platelet Count 209 K/mcL (140-400); Red Blood Count 3.75 M/mcL (3.82-4.97); Red Cell Distribution Width 12.8 % (11.5-14.5); Segmented Neutrophils % 78.9 %
[2020-05-04 10:43] VITALS: BP 128/84
[2020-05-04 10:47] LABS: BUN/Creatinine Ratio 10 (6-26); Blood Urea Nitrogen 8 mg/dL (8-23); Calcium 8.6 mg/dL (8.6-10.3); Carbon Dioxide 25 mEq/L (23-29); Chloride 99 mEq/L (98-107); Glucose 117 mg/dL (70-105); Osmolality,Calculated 267 (280-300); Potassium 3.6 mEq/L (3.5-5.1); Sodium 129 mEq/L (136-145); eGFR For African Americans > 60 (> 60); eGFR For Non-African Americans > 60 (> 60)
== END 2020-05-04 15:01 | disposition home health service (06) | DRG 948 ==
LOC: EMEROOARM 02:28 → 3ANU 02:28 → SUATTDRO 15:55
PROVIDERS: ADMIT Internal Medicine; ATTEND Family Medicine
PROC: ENDOEBX (2020-05-02 13:00)

== ENCOUNTER 2021-08-06 12:56 | Observation (INO) ==
[2021-08-06] MEDS ORDERED: Aspirin 325 MG TABLET PO ONE (13:43)
[2021-08-06 13:54] LABS: Basophils % 0.6 %; Eosinophils % 0.8 %; Hematocrit 34.2 % (35.3-44.9); Hemoglobin 10.7 g/dL (11.5-15.4); Immature Granulocytes % 0.2 % (0-4); Lymphocytes # 0.6 K/mcL (0.6-4.6); Lymphocytes % 10.9 %; Mean Corpuscular HGB Conc 31.3 g/dL (31.6-35.5); Mean Corpuscular Hemoglobin 27.5 pg (28.0-33.3); Mean Corpuscular Volume 87.9 fL (83.0-100.0); Mean Platelet Volume 9.8 fL (9.4-12.4); Monocytes # 0.9 K/mcL (0.0-1.3); Monocytes % 17.9 %; Neutrophils # 3.6 K/mcL (1.6-8.9); Platelet Count 239 K/mcL (140-400); Red Blood Count 3.89 M/mcL (3.82-4.97); Segmented Neutrophils % 69.6 %; White Blood Count 5.2 K/mcL (4.3-11.1)
[2021-08-06 14:14] LABS: BUN/Creatinine Ratio 9 (6-26); Blood Urea Nitrogen 8 mg/dL (8-23); Calcium 9.3 mg/dL (8.6-10.3); Carbon Dioxide 29 mEq/L (23-29); Chloride 101 mEq/L (98-107); Glucose 96 mg/dL (70-105); Osmolality,Calculated 282 (280-300); Potassium 3.2 mEq/L (3.5-5.1); Sodium 137 mEq/L (136-145); Troponin I < 0.03 ng/mL (< 0.04); eGFR For African Americans > 60 (> 60); eGFR For Non-African Americans > 60 (> 60)
[2021-08-06 15:18] LABS: INR 1.1; Prothrombin Time 12.1 Seconds (9.4-12.1)
[2021-08-06 15:21] LABS: Activated Partial Thrombo Time 33.3 Seconds (26.0-36.0)
[2021-08-06] MEDS ORDERED: Melatonin 3 MG TABLET PO PRN (15:37)
[2021-08-06] MEDS ORDERED: Naloxone 0.4 MG/ML INJ IVP PRN (15:37)
[2021-08-06] MEDS ORDERED: Isovue-370 500 ML BOTTLE IVP ONE (17:12)
[2021-08-07] MEDS: Morphine Sulfate ER (12 HR) 15 MG TABLET.ER PO SCH ×2 (00:48→08:36)
[2021-08-07 01:38] LABS: Basophils % 0.3 %; Eosinophils # 0.1 K/mcL (0.0-0.6); Eosinophils % 1.1 %; Hematocrit 33.3 % (35.3-44.9); Hemoglobin 10.7 g/dL (11.5-15.4); Immature Granulocytes % 0.2 % (0-4); Lymphocytes # 0.8 K/mcL (0.6-4.6); Lymphocytes % 12.2 %; Mean Corpuscular HGB Conc 32.1 g/dL (31.6-35.5); Mean Corpuscular Hemoglobin 28.4 pg (28.0-33.3); Mean Corpuscular Volume 88.3 fL (83.0-100.0); Mean Platelet Volume 10.3 fL (9.4-12.4); Monocytes # 1.2 K/mcL (0.0-1.3); Monocytes % 19.4 %; Neutrophils # 4.2 K/mcL (1.6-8.9); Platelet Count 233 K/mcL (140-400); Red Blood Count 3.77 M/mcL (3.82-4.97); Red Cell Distribution Width 14.2 % (11.5-14.5); Segmented Neutrophils % 66.8 %; White Blood Count 6.3 K/mcL (4.3-11.1)
[2021-08-07 01:57] LABS: BUN/Creatinine Ratio 15 (6-26); Blood Urea Nitrogen 13 mg/dL (8-23); Calcium 9.4 mg/dL (8.6-10.3); Carbon Dioxide 26 mEq/L (23-29); Chloride 102 mEq/L (98-107); Chol/HDL Ratio 2.4 (0-4.9); Cholesterol 186 mg/dL (< 200); Glucose 93 mg/dL (70-105); HDL Cholesterol 76 mg/dL (40-59); LDL Cholesterol,Calculated 88 mg/dL (< 100); Osmolality,Calculated 282 (280-300); Potassium 3.7 mEq/L (3.5-5.1); Sodium 136 mEq/L (136-145); Triglycerides 108 mg/dL (< 150); eGFR For African Americans > 60 (> 60); eGFR For Non-African Americans > 60 (> 60)
[2021-08-07] MEDS ORDERED: Regadenoson 0.4 MG/5 ML SYRINGE IVP ONE (06:09)
[2021-08-07] MEDS: levETIRAcetam 250 MG TABLET PO SCH ×2 (08:36→15:02)
[2021-08-07] MEDS ORDERED: Aspirin Enteric Coated 81 MG Tablet PO SCH (09:00)
[2021-08-07 11:01] VITALS: TEMP 98.5
[2021-08-07] MEDS ORDERED: FLU Vac QV 21-22 (6Month+)/PF 0.5 ML SYRINGE IM ONE (14:50)
[2021-08-07 14:59] VITALS: BP 121/75; PULSE 97; O2SAT 95
[2021-08-07] MEDS ORDERED: LEVETIRACETAM 100 MG/ML PO SCH (15:00)
[2021-08-07] MEDS ORDERED: levETIRAcetam 250 MG TABLET PO SCH (21:00)
== END 2021-08-07 15:44 | disposition home or self-care (01) ==
LOC: 3BNU 12:56 → EMEROOARM 12:56 → SUATTDRO 17:05 → 3BNU 17:53
PROVIDERS: ADMIT Pharmacist; ATTEND Registered Nurse